=== PATIENT | male | born 1950 | race Caucasian/White ===

== ENCOUNTER 2020-05-09 15:16 | Emergency (ER) | payer OTHER ==
[~2020-05-09] VITALS: Ht 172.7 cm; Wt 113.4 kg
[2020-05-09 15:16] VITALS: BP_SYST 172
[2020-05-09] MEDS ORDERED: BACITRACIN 1 GM OINT TP ONE ×2 (15:45→16:03)
== END 2020-05-09 16:27 | disposition home or self-care (01) ==
LOC: SED 15:16
DX: S51.011A Laceration without foreign body of right elbow, initial encounter (principal); M25.571 Pain in right ankle and joints of right foot; M25.572 Pain in left ankle and joints of left foot; I10 Essential (primary) hypertension; E78.5 Hyperlipidemia, unspecified; I25.2 Old myocardial infarction; Z88.5 Allergy status to narcotic agent; Z91.040 Latex allergy status; W01.0XXA Fall on same level from slipping, tripping and stumbling without subsequent striking against object, initial encounter; Y93.89 Activity, other specified; Y92.512 Supermarket, store or market as the place of occurrence of the external cause; Y99.8 Other external cause status
CPT/HCPCS: 99283